=== PATIENT | female | born 1950 | race Caucasian/White ===

== ENCOUNTER 2018-09-11 16:47 | Emergency (ER) | payer MEDICARE, OTHER ==
[2018-09-11] MEDS ORDERED: SODIUM CHLORIDE 0.9% 500 ML IV ONE (17:10)
--- NOTE | 2018-09-11 17:14 | ED Physician Documentation ---
PD HPI DYSPNEA - Stated complaint Stated Complaint: SOA/SYNCOPE/SENT BY DR. 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 fib per her though. She also has a history of hypertrophic obstructive cardiomyopathy which is managed conservatively and without any past interventions and followed by Dr. Gaytan in [place]. She went on a cruise a few weeks ago and developed a productive cough and shortness of breath there. When she got back she was seen in the clinic and had a CT without contrast and diagnosed with pneumonia and pericardial effusion that had not been present previously. She was placed on a Z-Corona. She continues to have exertional shortness of breath and with minimal activities. She has chronic pedal edema which is unchanged from prior. She denies fevers at this point and has no chest pain. She also notes that she has had 2 episodes of syncope, one while on the cruise and one 10 days ago. She says she really has not had any syncope since but the son says she has had several episodes of syncope as recently as today.) - Additional information Additional information: Intermittently for the last several months she has had bright red blood per rectum. She had her last colonoscopy about 4 years ago with polyps per her. Right now she is not having any rectal bleeding. The last episode of rectal bleeding was a few weeks ago. Review of Systems Ten Systems: 10 systems reviewed and negative Constitutional: reports: Fatigue. denies: Fever, Chills Nose: denies: Rhinorrhea / runny nose, Congestion Throat: denies: Sore throat Cardiac: reports: Pedal edema (Chronic). denies: Chest pain / pressure, Palpitations, Calf pain Respiratory: reports: Dyspnea, Cough. denies: Hemoptysis, Wheezing GI: denies: Abdominal Pain, Nausea, Vomiting PD PAST MEDICAL HISTORY - Past Medical History Past Medical History: Yes Cardiovascular: Hypertension, High cholesterol Neuro: CVA (Retinal artery occlusion) - Allergies Allergies/Adverse Reactions: Allergies Allergy/AdvReac Type Severity Reaction Status Date / Time Penicillins Allergy Anaphylaxis Verified 09/11/18 17:24 codeine AdvReac Nausea Verified 09/11/18 17:24 - Living Situation Living Situation: reports: With family - Social History Does the pt smoke?: Yes Smoking Status: Current every day smoker - Family History Family history: reports: Non contributory PD ED PE NORMAL - Vitals Vital signs reviewed: Yes - General General: Alert and oriented X 3, No acute distress - HEENT HEENT: PERRL, EOMI - Neck Neck: Supple, no meningeal sign, No bony TTP - Cardiac Cardiac: RRR, Other (3/6 SM LUSB) - Respiratory Respiratory: No respiratory distress, Clear bilaterally - Abdomen Abdomen: Normal bowel sounds, Soft, Non tender - Rectal Rectal: Other (with Yael Herrera RN, light stool, guaiac negative) - Back Back: No CVA TTP, No spinal TTP - Derm Derm: Normal color, Warm and dry - Extremities Extremities: Other (3+ symmetric pedal edema, chronic and at baseline per pt) - Neuro Neuro: Alert and oriented X 3, Normal speech Results - Vitals Vitals: Vital Signs - 24 hr 09/11/18 09/11/18 09/11/18 16:49 18:15 19:35 Temperature 37.7 C H Heart Rate 81 75 70 Respiratory 24 15 18 Rate Blood Pressure 137/47 H 155/57 H 111/60 O2 Saturation 94 96 96 09/11/18 09/11/18 09/11/18 19:38 19:55 20:56 Temperature 36.9 C 36.7 C Heart Rate 70 71 68 Respiratory 16 18 18 Rate Blood Pressure 111/60 109/65 143/60 H O2 Saturation 95 95 Oxygen O2 Source Room air - EKG (time done) 1701 Rate: Rate (enter#) (73) Rhythm: NSR [place]: Normal QRS: LVH Ischemia: ST elevation c/w repol Compare to prior EKG: Old EKG unavailable Computer interpretation: Disagree with computer - Labs Labs: Laboratory Tests 09/11/18 09/11/18 09/11/18 17:10 17:10 17:10 WBC 7.3 RBC 2.98 L Hgb 7.7 L Hct 24.5 L MCV 82.2 MCH 26.0 L MCHC 31.6 L RDW 18.5 H Plt Count 326 MPV 7.4 L Neut # (Auto) 5.0 Lymph # (Auto) 1.3 L Martin # (Auto) 0.7 Eos # (Auto) 0.1 Baso # (Auto) 0.1 Absolute Nucleated RBC 0.00 Nucleated RBC % 0.0 PT INR Sodium 140 Potassium 3.6 Chloride 106 Carbon Dioxide 29 Anion Gap 5.0 L BUN 18 Creatinine 0.7 Estimated GFR (MDRD) 83 L Glucose 115 H Calcium 8.8 Total Bilirubin 0.4 AST 19 ALT 21 Alkaline Phosphatase 88 Troponin I < 0.04 B-Natriuretic Peptide Total Protein 6.3 L Albumin 3.4 Globulin 2.9 Albumin/Globulin Ratio 1.2 Lipase 34 Blood Type Blood Type Recheck Antibody Screen Crossmatch IS Only 09/11/18 09/11/18 09/11/18 17:10 17:10 17:10 WBC RBC Hgb Hct MCV MCH MCHC RDW Plt Count MPV Neut # (Auto) Lymph # (Auto) Martin # (Auto) Eos # (Auto) Baso # (Auto) Absolute Nucleated RBC Nucleated RBC % PT 15.4 H INR 1.4 H Sodium Potassium Chloride Carbon Dioxide Anion Gap BUN Creatinine Estimated GFR (MDRD) Glucose Calcium Total Bilirubin AST ALT Alkaline Phosphatase Troponin I B-Natriuretic Peptide 440 H Total Protein Albumin Globulin Albumin/Globulin Ratio Lipase Blood Type Blood Type Recheck O POSITIVE Antibody Screen Crossmatch IS Only 09/11/18 18:12 WBC RBC Hgb Hct MCV MCH MCHC RDW Plt Count MPV Neut # (Auto) Lymph # (Auto) Martin # (Auto) Eos # (Auto) Baso # (Auto) Absolute Nucleated RBC Nucleated RBC % PT INR Sodium Potassium Chloride Carbon Dioxide Anion Gap BUN Creatinine Estimated GFR (MDRD) Glucose Calcium Total Bilirubin AST ALT Alkaline Phosphatase Troponin I B-Natriuretic Peptide Total Protein Albumin Globulin Albumin/Globulin Ratio Lipase Blood Type O POSITIVE Blood Type Recheck Antibody Screen NEGATIVE Crossmatch IS Only See Detail - Rads (name of study) CTA Chest Radiology: EMP read contemporaneously (No PE, RLL PNA with effusion. No pericardial effusion. Renal lithiasis.) PD MEDICAL DECISION MAKING - ED course ED course: 68-year-old woman with history of hypertrophic obstructive cardiomyopathy presents with persistent dyspnea on exertion that is likely multifactorial based on history and physical. It is likely due to underlying heart disease, anemia from ongoing intermittent rectal bleeding although she is guaiac negative at this time, pneumonia. Also she is noted to have intermittent atrial fibrillation on the monitor which is new diagnosis for but noting that she is on Eliquis. Case discussed by phone with Dr. Rey on-call for her appeals assistant to recommends admission for blood and volume repletion, IV antibiotics and telemetry monitoring. She did have a syncopal episode in the CT scanner here and a CODE BLUE was called, no clear loss of pulses but she was not on the monitor at the time. She recovered quickly and without issue. Per the family she is syncopizing basically daily. There were no beds available here, she was graciously accepted by Dr. Grewal to the hospitalist service in [place] and cobras were completed. Departure - Departure Disposition: 02 Transfer Acute Care Hosp Clinical Impression: Pneumonia, Obstructive cardiomyopathy, Anemia, Atrial fibrillation, Syncope Condition: Serious
[2018-09-11 17:23] LABS: BASOPHILS # (AUTO) 0.1 10^3/uL (0.0-0.1); EOSINOPHILS # (AUTO) 0.1 10^3/uL (0.0-0.7); HGB - HEMOGLOBIN 7.7 g/dL (12.0-16.0); LYMPHOCYTES # (AUTO) 1.3 10^3/uL (1.5-3.5); LYMPHOCYTES % (AUTO) 18.3 %; MEAN CORPUSCULAR HGB CONC 31.6 g/dL (32.0-36.0); MEAN CORPUSCULAR VOLUME 82.2 fL (81.0-99.0); MEAN PLATELET VOLUME 7.4 fL (7.9-10.8); MONOCYTES # (AUTO) 0.7 10^3/uL (0.0-1.0); MONOCYTES % (AUTO) 9.2 %; NEUTROPHILS % (AUTO) 69.5 %; PLT - PLATELET COUNT 326 10^3/uL (130-450); RED BLOOD COUNT 2.98 10^6/uL (4.20-5.40); RED CELL DISTRIBUTION WIDTH 18.5 % (12.0-15.0); WHITE BLOOD COUNT 7.3 x10^3/uL (4.8-10.8)
[2018-09-11] MEDS ORDERED: IOPAMIDOL-300 100 ML VIAL ONE (17:29)
[2018-09-11 17:33] LABS: INR 1.4 (0.8-1.2); PT - PROTHROMBIN TIME 15.4 secs (9.9-12.6)
[2018-09-11 17:41] LABS: ALBUMIN 3.4 g/dL (3.2-5.5); ALBUMIN/GLOBULIN RATIO 1.2 (1.0-2.2); BILIRUBIN,TOTAL 0.4 mg/dL (0.2-1.0); CALCIUM 8.8 mg/dL (8.5-10.3); CREATININE 0.7 mg/dL (0.4-1.0); TOTAL PROTEIN 6.3 g/dL (6.7-8.2)
[2018-09-11] MEDS ORDERED: IOPAMIDOL-300 100 ML VIAL IVP ONE (18:09)
--- NOTE | 2018-09-11 18:28 | CT Report ---
Reason: dyspnea, recent pna and pericardial effusion Procedure Date: 09/11/2018 Accession Number: [id number] / [id number] Procedure: CT - Chest Angio (PE) CPT Code: FULL RESULT: EXAM: CT ANGIOGRAM CHEST EXAM DATE: 09/11/2018 06:08 PM. CLINICAL HISTORY: Dyspnea, recent pneumonia and pericardial effusion. COMPARISON: None. TECHNIQUE: Routine helical imaging was performed through the chest in the pulmonary arterial phase. IV Contrast: ISOVUE 300 80mL. Reconstructions: Coronal 3-D MIP reconstructions.Sagittal and coronal. In accordance with CT protocol optimization, one or more of the following dose reduction techniques were utilized for this exam: automated exposure control, adjustment of mA and/or KV based on patient size, or use of iterative reconstructive technique. FINDINGS: Pulmonary Arteries: Diagnostic quality: Adequate through the segmental arteries. No evidence for acute or chronic pulmonary emboli. RV/LV is within normal limits. There is no interventricular septal bowing. There is no reflux of contrast material in the IVC. Lungs/Pleura: Moderate right and small left pleural effusions. Right lower lobe consolidation and/or atelectasis seen. There is primarily upper lobe centrilobular emphysema. No lung mass. No pneumothorax. Mediastinum: Normal heart size. No pericardial effusion. There is a 1.9 cm precarinal lymph node with numerous additional smaller; however, pathologically enlarged mediastinal and bilateral hilar lymph nodes. Thoracic Aorta: Unremarkable. Upper Abdomen: There is a 4 mm left renal stone. Other: None. IMPRESSION: 1. No pulmonary embolism. 2. Moderate right and small left pleural effusions with right lower lobe airspace consolidation/atelectasis. 3. Emphysema. 4. Mild mediastinal and bilateral hilar lymphadenopathy. 5. Nonobstructing left intrarenal stone. RADIA
[2018-09-11] MEDS ORDERED: levoFLOXacin 750 MG/150 ML 750 MG/150 ML BAG IV ONE (18:53)
[2018-09-11 20:57] VITALS: BP 143/60
== END 2018-09-11 21:30 | disposition short-term general hospital (02) ==
LOC: ED 16:47
DX: J18.9 Pneumonia, unspecified organism (principal); R55 Syncope and collapse; I48.91 Unspecified atrial fibrillation; I42.1 Obstructive hypertrophic cardiomyopathy; I11.9 Hypertensive heart disease without heart failure; D50.0 Iron deficiency anemia secondary to blood loss (chronic); K62.5 Hemorrhage of anus and rectum; Z86.010 Personal history of colon polyps; H34.9 Unspecified retinal vascular occlusion; Z79.01 Long term (current) use of anticoagulants; F17.200 Nicotine dependence, unspecified, uncomplicated
CPT/HCPCS: 36415; 71275; 80053; 83690; 83880; 84484; 85025; 85610; 86850; 86900; 86901; 86920; 93005; 96361; 96374; 99284; P9016; Q9967; 87040; 99285

== ENCOUNTER 2019-07-30 13:39 | Outpatient (CLI) | payer MEDICARE, OTHER | END 2019-07-30 13:40 | disposition EMS.NT | LOC: EMS 13:39 | PROVIDERS: ATTEND Surgery | DX: R19.5 Other fecal abnormalities (principal); R53.1 Weakness; R53.83 Other fatigue ==

== ENCOUNTER 2021-05-19 10:47 | Outpatient (CLI) | payer MEDICARE, OTHER ==
--- NOTE | 2021-05-20 12:16 | Mammography Report ---
BILATERAL DIGITAL SCREENING MAMMOGRAM 3D/2D: 05/19/2021 CLINICAL: Routine screening. Comparison is made to exams dated: 06/27/2015 mammogram, 04/30/2014 mammogram, 03/18/2013 mammogram, and 12/26/2011 mammogram - [facility]. There are scattered fibroglandular elements in b oth breasts. No significant masses, calcifications, or other findings are seen in either breast. There has been no significant interval change. IMPRESSION: NEGATIVE There is no mammographic evidence of malignancy. A 1 year screening mammogram is recommended. This exam was interpreted at Station ID: [id number]. NOTE: For mammograms, a report in lay terms will be sent to the patient. Approximately 15% of breast malignancies will not be visualized mammographically. In the management of a palpable breast mass, a negative mammogram must not discourage biopsy of a clinically suspicious lesion. Electronically Signed By: Kleber Ramirez M.D. ddp/penrad:05/19/2021 14:51:11 ACR BI-RADS Category 1: Negative 3341F PARENCHYMAL PATTERN: (A) - The breast(s) demonstrate(s) scattered fibroglandular densities. BI-RADS CATEGORY: (1) - 1 RECOMMENDATION: (ANNUAL) - Recommend routine annual screening mammography. [id number] 1 year screening LATERALITY: (B)
== END 2021-05-19 10:48 | disposition home or self-care (01) ==
LOC: DI 10:47
DX: Z12.31 Encounter for screening mammogram for malignant neoplasm of breast (principal)